=== PATIENT | female | born 1985 | race Caucasian/White ===

== ENCOUNTER 2020-11-15 17:53 | Emergency (ER) | payer SELFPAY ==
[~2020-11-15] VITALS: Ht 162.6 cm; Wt 81.8 kg
[2020-11-15 17:54] VITALS: BP 108/60
[2020-11-16] MEDS ORDERED: ACET-897 PO (11:27)
== END 2020-11-15 20:37 | disposition left against medical advice (07) ==
LOC: M ED 17:53
DX: Z53.21 Procedure and treatment not carried out due to patient leaving prior to being seen by health care provider (principal)

== ENCOUNTER 2020-11-16 11:02 | Emergency (ER) | payer MEDICAID, OTHER, SELFPAY ==
[~2020-11-16] VITALS: Ht 162.6 cm; Wt 82.7 kg
[2020-11-16] MEDS ORDERED: ACET-897 PO (11:27)
[2020-11-16] MEDS ORDERED: ONDANSETRON 4MG/2ML VIAL IV ONE (11:55)
[2020-11-16] MEDS ORDERED: ACETAMINOPHEN 325 MG TAB PO ONE (11:55)
[2020-11-16 12:38] LABS: HEMATOCRIT 42.9 % (36.0-47.0); HEMOGLOBIN 14.1 g/dl (12.0-15.5); LYMPH % 24.6 % (24.0-44.0); MEAN CORPUSCULAR HEMOGLOBIN 31.6 pg (27.0-33.0); MEAN CORPUSCULAR HGB CONC 32.9 g/dl (32.0-36.5); MEAN CORPUSCULAR VOLUME 96.2 fl (80.0-96.0); MONO % 8.9 % (2.0-8.0); NEUTROPHILS % 64.5 % (36.0-66.0); PLATELET COUNT, AUTOMATED 288 10^3/uL (150-450); RED BLOOD COUNT 4.46 10^6/uL (4.00-5.40); WHITE BLOOD COUNT 4.8 10^3/uL (4.0-10.0)
[2020-11-16 12:39] LABS: BASO % 0.6 % (0.0-1.0); EOS # 0.1 10^3/uL (0.0-0.5); EOS % 1.2 % (0.0-3.0); LYMPH # 1.2 10^3/uL (1.5-5.0); MONO # 0.4 10^3/uL (0.0-0.8); NEUTROPHILS # 3.1 10^3/uL (1.5-8.5)
[2020-11-16] MEDS ORDERED: ISOVUE-370 76% 100ML VIAL As Ordered ONE (12:59)
--- NOTE | 2020-11-16 13:24 | REP ---
INDICATION: ABDOMINAL PAIL AND FLANK R>l. COMPARISON: None. TECHNIQUE: Helical scanning was acquired and 4 mm axial images are re-formatted. Coronal and sagittal MPR images were generated and reviewed. The contrast enhancement dose is 100 mL of intravenous Isovue 370. FINDINGS: Preliminary digital cellar pumper radiograph is unremarkable. Normal bowel gas pattern. The lung bases are clear on axial CT images. No pleural effusion or upper abdominal ascites is seen. The liver and the spleen are normal in size homogeneous in texture. The gallbladder is surgically absent. No abnormality is noted in the pancreas. Normal adrenal glands are present bilaterally. The kidneys enhance symmetrically and are morphologically intact. No retroperitoneal mass or adenopathy is seen. No abdominal wall defect is seen. The appendix is surgically absent. There are scattered normal sized right lower quadrant mesenteric lymph nodes. No definite adenopathy. Small and large bowel loops are unremarkable in the abdomen and pelvis. A moderate amount of formed stool is present in the rectum and sigmoid colon question constipation. The uterus is surgically absent. No adnexal abnormality is seen. No bony destructive lesion is seen. IMPRESSION: Patient is status post hysterectomy, appendectomy, and cholecystectomy. Moderate amount of stool in the distal colon question constipation. No acute abdominal or pelvic abnormality. <Electronically signed by Rosalio Bonds > 11/16/20 [id number]
[2020-11-16 13:45] LABS: ALBUMIN 4.1 GM/DL (3.2-5.2); ALT/SGPT 24 U/L (12-78); BILIRUBIN,DIRECT < 0.1 MG/DL (0.0-0.2); BILIRUBIN,TOTAL 0.3 MG/DL (0.2-1.0); LIPASE 75 U/L (73-393); TOTAL PROTEIN 7.8 GM/DL (6.4-8.2)
[2020-11-16] MEDS ORDERED: MAGNESIUM CITRATE 300 ML BTL PO ONE (14:15)
[2020-11-16 14:27] VITALS: BP 100/62
== END 2020-11-16 14:38 | disposition home or self-care (01) ==
LOC: M ED 11:02
DX: K59.00 Constipation, unspecified (principal); Z98.84 Bariatric surgery status; Z91.040 Latex allergy status
CPT/HCPCS: 74177; 80047; 80076; 81001; 83690; 84702; 85025; 96374; 99284; J2405; Q9967

== ENCOUNTER 2020-12-23 18:11 | Emergency (ER) | payer MEDICAID, OTHER ==
[~2020-12-23] VITALS: Ht 162.6 cm; Wt 77.3 kg
[~2020-12-23 18:11] MED LIST: ACET-897 PO
[2020-12-23 19:55] LABS: BASO % 0.5 % (0.0-1.0); EOS # 0.1 10^3/uL (0.0-0.5); EOS % 1.2 % (0.0-3.0); HEMATOCRIT 37.1 % (36.0-47.0); HEMOGLOBIN 12.1 g/dl (12.0-15.5); LYMPH # 2.2 10^3/uL (1.5-5.0); LYMPH % 39.4 % (24.0-44.0); MEAN CORPUSCULAR HEMOGLOBIN 31.4 pg (27.0-33.0); MEAN CORPUSCULAR HGB CONC 32.6 g/dl (32.0-36.5); MEAN CORPUSCULAR VOLUME 96.4 fl (80.0-96.0); MONO # 0.5 10^3/uL (0.0-0.8); MONO % 8.8 % (2.0-8.0); NEUTROPHILS # 2.8 10^3/uL (1.5-8.5); NEUTROPHILS % 49.7 % (36.0-66.0); PLATELET COUNT, AUTOMATED 300 10^3/uL (150-450); RED BLOOD COUNT 3.85 10^6/uL (4.00-5.40); WHITE BLOOD COUNT 5.7 10^3/uL (4.0-10.0)
[2020-12-23 20:05] LABS: INR 0.89; PROTHROMBIN TIME 12.2 SECONDS (12.5-14.3)
[2020-12-23 20:18] LABS: ALBUMIN 3.7 GM/DL (3.2-5.2); ALT/SGPT 21 U/L (12-78); AMYLASE 74 U/L (25-115); BILIRUBIN,DIRECT < 0.1 MG/DL (0.0-0.2); BILIRUBIN,TOTAL 0.2 MG/DL (0.2-1.0); BLOOD UREA NITROGEN 19 MG/DL (7-18); CALCIUM LEVEL 8.5 MG/DL (8.5-10.1); CARBON DIOXIDE LEVEL 27 MEQ/L (21-32); CHLORIDE LEVEL 110 MEQ/L (98-107); CK-MB VALUE MASS < 1.0 NG/ML (<3.6); CPK CREATINE PHOSPHOKINASE 96 U/L (26-192); CREATININE FOR GFR 0.99 MG/DL (0.55-1.30); GLOMERULAR FILTRATION RATE > 60.0 (>60); GLUCOSE, FASTING 71 MG/DL (70-100); LIPASE 130 U/L (73-393); MB/CK RELATIVE INDEX 1.04 (< OR =4); POTASSIUM SERUM 4.4 MEQ/L (3.5-5.1); SODIUM LEVEL 142 MEQ/L (136-145); TROPONIN I < 0.02 NG/ML (< 0.10)
[2020-12-23] MEDS ORDERED: ISOVUE-370 76% 100ML VIAL As Ordered ONE (21:02)
--- NOTE | 2020-12-23 21:57 | REPVR ---
PROCEDURE INFORMATION: Exam: CT Abdomen And Pelvis With Contrast Exam date and time: 12/23/2020 9:25 PM Age: 35 years old Clinical indication: Abdominal pain; Generalized; Additional info: Pressure rectally and lower abd, prior hemanth, appy, hyster TECHNIQUE: Imaging protocol: Computed tomography of the abdomen and pelvis with contrast. Radiation optimization: All CT scans at this facility use at least one of these dose optimization techniques: automated exposure control; mA and/or kV adjustment per patient size (includes targeted exams where dose is matched to clinical indication); or iterative reconstruction. Contrast material: ISOVUE 370; Contrast volume: 100 ml; Contrast route: INTRAVENOUS (IV); COMPARISON: CT ABD/PEL W/IV CONTRAST ONLY 11/16/2020 12:58 PM FINDINGS: Liver: There is mild diffuse decrease in hepatic parenchymal density, consistent with steatosis. Gallbladder and bile ducts: There has been a cholecystectomy. Pancreas: Normal. No ductal dilation. Spleen: Normal. No splenomegaly. Adrenal glands: Normal. No mass. Kidneys and ureters: Normal. No hydronephrosis. Stomach and bowel: This patient is status post gastric bypass surgery. There is increased feces throughout the colon consistent with constipation. Posterior pelvic floor compartment rectal prolapse. Appendix: No evidence of appendicitis. Intraperitoneal space: Unremarkable. No free air. No significant fluid collection. Vasculature: Unremarkable. No abdominal aortic aneurysm. Lymph nodes: Unremarkable. No enlarged lymph nodes. Urinary bladder: Unremarkable as visualized. Reproductive: There has been a hysterectomy. Bones/joints: Moderate to severe central spinal stenosis L4-L5. Soft tissues: Unremarkable. IMPRESSION: 1. There has been a cholecystectomy. 2. There is mild diffuse decrease in hepatic parenchymal density, consistent with steatosis. 3. This patient is status post gastric bypass surgery. 4. There is increased feces throughout the colon consistent with constipation. 5. There has been a hysterectomy. 6. Posterior pelvic floor compartment rectal prolapse. Electronically signed by: Don Parks On 12/23/2020 21:57:07 PM
[2020-12-23] MEDS ORDERED: FLEET OIL RETENTION ENEMA PR STA (22:18)
[2020-12-23] MEDS ORDERED: LACTULOSE 20 GM/30 ML SYRUP UD PO ONE (22:20)
[2020-12-23 22:25] VITALS: BP 119/70
[2020-12-23] MEDS ORDERED: LACT20EL PO (22:50)
[2020-12-23] MEDS ORDERED: ENEMCAP PR (22:50)
== END 2020-12-23 23:06 | disposition home or self-care (01) ==
LOC: M ED 18:11
DX: K62.3 Rectal prolapse (principal); K59.00 Constipation, unspecified; K21.9 Gastro-esophageal reflux disease without esophagitis; Z87.19 Personal history of other diseases of the digestive system; Z87.42 Personal history of other diseases of the female genital tract; Z98.84 Bariatric surgery status; Z91.040 Latex allergy status
CPT/HCPCS: 36415; 74177; 80048; 80076; 81001; 82150; 82550; 82553; 83690; 85025; 85610; 85730; 99284; Q9967

== ENCOUNTER → 2021-03-24 | Outpatient (CLI) | payer OTHER ==
[~2021-03-24] MED LIST changes: +ENEMCAP PR; +LACT20EL PO; +LANS15CA PO
== END ==
LOC: M LABSMTC 10:11
PROVIDERS: ATTEND Anesthesiology
DX: Z20.822 Contact with and (suspected) exposure to COVID-19 (principal)

== ENCOUNTER 2021-03-27 09:42 | Day surgery (SDC) | payer OTHER ==
[~2021-03-27] VITALS: Ht 162.6 cm; Wt 82.5 kg
[~2021-03-27 09:42] MED LIST changes: +LIDOCAINE 2% 100MG/5ML SDV (FOR ANES.) As Ordered ONE; +NS 1,000 ML IV ONE; +fentaNYL 100 MCG/2 ML INJECTION (J3010) As Ordered ONE; +propofoL 500 MG/50 ML VIAL As Ordered ONE
[2021-03-27] MEDS ORDERED: LINZ145C PO (10:12)
[2021-03-27] MEDS ORDERED: ONDANSETRON 4MG/2ML VIAL As Ordered ONE (10:44)
--- NOTE | 2021-03-27 10:55 | ROOR ---
Patient Name: Harjeet Garcia Procedure Date: 03/27/2021 10:41 AM Date of : 1985 Age: 35 Room: [facility] Gender: Female Note Status: Finalized Procedure: Upper GI endoscopy Indications: Epigastric abdominal pain Providers: Jovani Babb Jr, MD Referring MD: Emmy SCHULTZ NP Requesting Provider: Medicines: Propofol per Anesthesia Complications: No immediate complications. Procedure: Pre-Anesthesia Assessment: - Prior to the procedure, a History and Physical was performed, and patient medications and allergies were reviewed. The patient is competent. The risks and benefits of the procedure and the sedation options and risks were discussed with the patient. All questions were answered and informed consent was obtained. Patient identification and proposed procedure were verified by the physician and the nurse in the pre-procedure area and in the procedure room. Mental Status Examination: alert and oriented. Airway Examination: normal oropharyngeal airway and neck mobility. Respiratory Examination: clear to auscultation. CV Examination: normal. ASA Grade Assessment: II - A patient with mild systemic disease. After reviewing the risks and benefits, the patient was deemed in satisfactory condition to undergo the procedure. The anesthesia plan was to use moderate sedation / analgesia (conscious sedation). Immediately prior to administration of medications, the patient was re-assessed for adequacy to receive sedatives. The heart rate, respiratory rate, oxygen saturations, blood pressure, adequacy of pulmonary ventilation, and response to care were monitored throughout the procedure. The physical status of the patient was re-assessed after the procedure. The Endoscope was introduced through the mouth, and advanced to the second part of duodenum. The upper GI endoscopy was accomplished without difficulty. The patient tolerated the procedure well. Findings: The upper third of the esophagus, middle third of the esophagus and lower third of the esophagus were normal. Evidence of a sleeve gastrectomy was found in the gastric body. This was characterized by healthy appearing mucosa. The gastroesophageal junction, cardia and gastric body were normal. Localized moderate inflammation characterized by congestion (edema), erosions, friability and granularity was found in the prepyloric region of the stomach. Biopsies were taken with a cold forceps for histology. The duodenal bulb, first portion of the duodenum and second portion of the duodenum were normal. Impression: - Normal upper third of esophagus, middle third of esophagus and lower third of esophagus. - Evidence of previous gastric surgery was found, characterized by stenosis. - Normal gastroesophageal junction, cardia and gastric body. - Gastritis. Biopsied. - Normal duodenal bulb, first portion of the duodenum and second portion of the duodenum. Recommendation: - Discharge patient to home (ambulatory). - Return to my office as previously scheduled. Procedure Code(s): --- Professional --- 59281, Esophagogastroduodenoscopy, flexible, transoral; with biopsy, single or multiple Diagnosis Code(s): --- Professional --- Z98.0, Intestinal bypass and anastomosis status K29.70, Gastritis, unspecified, without bleeding R10.13, Epigastric pain CPT copyright 2019 [employer]. All rights reserved. The codes documented in this report are preliminary and upon data coder operator review may be revised to meet current compliance requirements. Jovani Babb MD Jovani Babb Jr, MD 03/27/2021 10:55:07 AM Electronically signed by Jovani Babb Jr, MD Number of Addenda: 0 Note Initiated On: 03/27/2021 10:41 AM Estimated Blood Loss: Estimated blood loss: none.
--- NOTE | 2021-03-27 11:12 | ROOR ---
Patient Name: Harjeet Garcia Procedure Date: 03/27/2021 10:42 AM Date of : 1985 Age: 35 Room: [facility] Gender: Female Note Status: Finalized Procedure: Colonoscopy Indications: Generalized abdominal pain Providers: Jovani Babb Jr, MD Referring MD: Emmy SCHULTZ NP Requesting Provider: Medicines: Propofol per Anesthesia Complications: No immediate complications. Procedure: Pre-Anesthesia Assessment: - Prior to the procedure, a History and Physical was performed, and patient medications and allergies were reviewed. The patient is competent. The risks and benefits of the procedure and the sedation options and risks were discussed with the patient. All questions were answered and informed consent was obtained. Patient identification and proposed procedure were verified by the physician and the nurse in the pre-procedure area and in the procedure room. Mental Status Examination: alert and oriented. Airway Examination: normal oropharyngeal airway and neck mobility. Respiratory Examination: clear to auscultation. CV Examination: normal. ASA Grade Assessment: II - A patient with mild systemic disease. After reviewing the risks and benefits, the patient was deemed in satisfactory condition to undergo the procedure. The anesthesia plan was to use moderate sedation / analgesia (conscious sedation). Immediately prior to administration of medications, the patient was re-assessed for adequacy to receive sedatives. The heart rate, respiratory rate, oxygen saturations, blood pressure, adequacy of pulmonary ventilation, and response to care were monitored throughout the procedure. The physical status of the patient was re-assessed after the procedure. The Colonoscope was introduced through the anus and advanced to the cecum, identified by appendiceal orifice and ileocecal valve. The colonoscopy was performed without difficulty. The patient tolerated the procedure well. The quality of the bowel preparation was adequate. Findings: The rectum, sigmoid colon, descending colon, transverse colon, ascending colon, cecum, appendiceal orifice and ileocecal valve appeared normal. A diffuse area of the distal ileum was congested. This was biopsied with a cold forceps for histology. Impression: - The rectum, sigmoid colon, descending colon, transverse colon, ascending colon, cecum, appendiceal orifice and ileocecal valve are normal. - Congested mucosa in the distal ileum. Biopsied. Recommendation: - Discharge patient to home (ambulatory). - Return to my office as previously scheduled. Procedure Code(s): --- Professional --- 79576, Colonoscopy, flexible; with biopsy, single or multiple Diagnosis Code(s): --- Professional --- K63.89, Other specified diseases of intestine R10.84, Generalized abdominal pain CPT copyright 2019 [employer]. All rights reserved. The codes documented in this report are preliminary and upon vice president of business development review may be revised to meet current compliance requirements. Jovani Babb MD Jovani Babb Jr, MD 03/27/2021 11:12:19 AM Electronically signed by Jovani Babb Jr, MD Number of Addenda: 0 Note Initiated On: 03/27/2021 10:42 AM Estimated Blood Loss: Estimated blood loss: none.
[2021-03-27 11:30] VITALS: BP 116/70
== END 2021-03-27 11:43 | disposition home or self-care (01) ==
LOC: M OPP 09:42
PROVIDERS: ATTEND Surgery
DX: K63.89 Other specified diseases of intestine (principal); R10.84 Generalized abdominal pain; Z98.0 Intestinal bypass and anastomosis status; K29.70 Gastritis, unspecified, without bleeding; R10.13 Epigastric pain; K74.60 Unspecified cirrhosis of liver; Z91.040 Latex allergy status; Z91.048 Other nonmedicinal substance allergy status
CPT/HCPCS: 43239; 45380; 88305; J2405; J3010

== ENCOUNTER → 2021-05-17 | Outpatient (CLI) | payer OTHER ==
[~2021-05-17] MED LIST changes: +ALBU8.5H; +AMIT25TA17; +ARIP1TAB6; +BUSP10TA; +COMB1DIS; +FAMO40TA3; -LIDOCAINE 2% 100MG/5ML SDV (FOR ANES.) As Ordered ONE; +LINZ145C PO; -NS 1,000 ML IV ONE; +VITA200016; -fentaNYL 100 MCG/2 ML INJECTION (J3010) As Ordered ONE; -propofoL 500 MG/50 ML VIAL As Ordered ONE
== END ==
LOC: M LABSMTC 09:33
PROVIDERS: ATTEND Anesthesiology
DX: Z01.812 Encounter for preprocedural laboratory examination (principal); Z20.822 Contact with and (suspected) exposure to COVID-19

== ENCOUNTER → 2021-07-05 | Outpatient (CLI) | payer MEDICAID, OTHER ==
[~2021-07-05] MED LIST changes: +AMIT25TA17 PO; +DICY20TA11 PO; +PRIL20TA2 PO; +VITA200048 PO
== END ==
LOC: M LABSMTC 11:05
PROVIDERS: ATTEND Anesthesiology
DX: Z01.812 Encounter for preprocedural laboratory examination (principal); Z20.822 Contact with and (suspected) exposure to COVID-19

== ENCOUNTER 2021-07-10 09:28 | Day surgery (SDC) | payer MEDICAID, OTHER ==
[~2021-07-10] VITALS: Ht 162.6 cm; Wt 88.5 kg
[~2021-07-10 09:28] MED LIST changes: -DICY20TA11 PO; +DICY20TA20 PO; +LR 1,000 ML IV ONE
[2021-07-10] MEDS ORDERED: LEVO25TA5 PO (10:13)
[2021-07-10] MEDS ORDERED: RIZA10TA58 PO (10:13)
[2021-07-10] MEDS ORDERED: COMB1DIS TOP (10:13)
[2021-07-10] MEDS ORDERED: MIDAZOLAM INJ 2MG/2ML VIAL (J2250 PER 1MG) As Ordered ONE (11:41)
[2021-07-10] MEDS ORDERED: fentaNYL 100 MCG/2 ML INJECTION As Ordered ONE ×2 (11:42→13:10)
[2021-07-10] MEDS: SCOPOLAMINE 1MG TRANSDERMAL PATCH TOP ONE ×2 (11:50→13:00)
[2021-07-10] MEDS ORDERED: ONDANSETRON 4MG/2ML VIAL As Ordered ONE (11:59)
[2021-07-10] MEDS ORDERED: dexameTHASONE 4 MG/ML 1ML VIAL (J1100 PER 1MG) As Ordered ONE (11:59)
[2021-07-10] MEDS ORDERED: LIDOCAINE 2% 100MG/5ML SDV (FOR ANES.) As Ordered ONE (11:59)
[2021-07-10] MEDS ORDERED: ROCURONIUM BROMIDE 50 MG/5 ML VIAL As Ordered ONE (11:59)
[2021-07-10] MEDS ORDERED: propofoL 200 MG/20 ML VIAL As Ordered ONE (11:59)
[2021-07-10] MEDS ORDERED: ACETAMINOPHEN 1000MG 100ML IV BTL (OFIRMEV) (J0131 PER 10MG) As Ordered ONE (12:16)
[2021-07-10] MEDS ORDERED: KETOROLAC 60MG 2ML VIAL As Ordered ONE (12:21)
[2021-07-10] MEDS ORDERED: METOCLOPRAMIDE INJ 10MG/2ML VIAL (J2765 PER 1) As Ordered ONE (12:21)
[2021-07-10] MEDS ORDERED: SUGAMMADEX SODIUM 500 MG/5 ML VIAL (BRIDION) As Ordered ONE (12:24)
[2021-07-10] MEDS ORDERED: PHENYLephrine 500MCG 5ML (100MCG/ML) SYRINGE As Ordered ONE (12:26)
[2021-07-10] MEDS: fentaNYL 100 MCG/2 ML INJECTION IV PRN ×4 (13:11→13:40)
[2021-07-10] MEDS ORDERED: oxyCODONE 5MG TAB PO PRN (13:20)
[2021-07-10] MEDS ORDERED: LR 1,000 ML IV SCH ×2 (13:20→13:25)
[2021-07-10] MEDS ORDERED: METOCLOPRAMIDE INJ 10MG/2ML VIAL (J2765 PER 1) IV PRN (13:20)
[2021-07-10] MEDS ORDERED: ONDANSETRON 4MG/2ML VIAL IV PRN (13:20)
[2021-07-10] MEDS ORDERED: ACETAMINOPH W/CODEINE #3 TAB UD PO PRN (13:25)
[2021-07-10 14:38] VITALS: BP 105/55
== END 2021-07-10 14:38 | disposition home or self-care (01) ==
LOC: M SDC 09:28
PROVIDERS: ATTEND Obstetrics & Gynecology
DX: N73.9 Female pelvic inflammatory disease, unspecified (principal); R10.2 Pelvic and perineal pain; R10.32 Left lower quadrant pain; E03.9 Hypothyroidism, unspecified; K76.0 Fatty (change of) liver, not elsewhere classified; G43.909 Migraine, unspecified, not intractable, without status migrainosus; J45.909 Unspecified asthma, uncomplicated; G47.30 Sleep apnea, unspecified; K21.9 Gastro-esophageal reflux disease without esophagitis; Z88.5 Allergy status to narcotic agent; Z91.040 Latex allergy status; D64.9 Anemia, unspecified; Z79.899 Other long term (current) drug therapy
CPT/HCPCS: 58660; J0131; J1100; J1885; J2250; J2370; J2405; J2765; J3010

== ENCOUNTER → 2021-09-08 | Outpatient (CLI) | payer OTHER ==
[~2021-09-08] MED LIST changes: +COMB1DIS TOP; +LEVO25TA5 PO; -LR 1,000 ML IV ONE; +RIZA10TA58 PO
== END ==
LOC: M SLEEP HO 11:15
PROVIDERS: ATTEND Nurse Practitioner Adult Health
DX: G47.30 Sleep apnea, unspecified (principal)